=== PATIENT | male | born 1980 | race Caucasian/White ===

== ENCOUNTER 2018-11-24 06:16 | Emergency (ER) | payer SELFPAY ==
[~2018-11-24] VITALS: Ht 175.3 cm; Wt 86.2 kg
[2018-11-24] MEDS ORDERED: GLIP5 (06:34)
[2018-11-24] MEDS ORDERED: SAXA2.5T (06:34)
[2018-11-24] MEDS ORDERED: ATOR10 (06:35)
[2018-11-24] MEDS ORDERED: N-ACETYL-L-CYS600 MG (06:36)
[2018-11-24] MEDS ORDERED: [UNRECOGNIZED DRUG - OTHER] (06:37)
[2018-11-24] MEDS ORDERED: PARACETAMOL (06:37)
[2018-11-24] MEDS ORDERED: [UNRECOGNIZED DRUG - OTHER] (06:38)
[2018-11-24] MEDS ORDERED: CEPH500 PO (06:56)
== END 2018-11-24 07:15 | disposition home or self-care (01) ==
LOC: ER 06:16
DX: K11.20 Sialoadenitis, unspecified (principal); K65.9 Peritonitis, unspecified; E11.9 Type 2 diabetes mellitus without complications; E78.00 Pure hypercholesterolemia, unspecified; Z88.6 Allergy status to analgesic agent; Z79.899 Other long term (current) drug therapy
CPT/HCPCS: 99283